=== PATIENT | female | born 1940 | race Caucasian/White ===

== ENCOUNTER → 2016-04-20 | Outpatient (CLI) | payer MEDICARE, BC ==
[~2016-04-20] MED LIST: DYAZ37.52 PO; GLUC2.5T2 PO; LEVO.125 PO; LOTE10TA PO; ROSU10 PO; ZOLO20CO PO
[2016-04-20 16:55] LABS: HEMATOCRIT 41.6 % (35.0-46.0); MEAN CELL VOLUME 92.7 FL (80.0-100.0); MEAN CORPUSCULAR HEMOGLOBIN 31.2 PG (27.0-34.0); MEAN CORPUSCULAR HGB CONC 33.7 % (32.0-36.0); PLATELET COUNT 190 TH/MM3 (150-450); RED BLOOD COUNT 4.49 MIL/MM3 (4.00-5.30); RED CELL DISTRIBUTION WIDTH 13.7 % (11.6-17.2); REVIEW FLAG FINAL; WHITE BLOOD COUNT 6.2 TH/MM3 (4.0-11.0)
[2016-04-20 17:10] LABS: MICRO ALBUMIN RANDOM URINE RAW 28.9 MG/L (0.0-30.0)
[2016-04-20 17:18] LABS: ALT (GPT) 18 U/L (10-53); ANION GAP 10 MEQ/L (5-15); AST (GOT) 14 U/L (15-37); BICARBONATE 31.6 MEQ/L (21.0-32.0); BLOOD UREA NITROGEN 23 MG/DL (7-18); CHLORIDE 103 MEQ/L (98-107); GLOMERULAR FILTRATION RATE 41 ML/MIN (>89); GLUCOSE,FASTING 127 MG/DL (74-99); POTASSIUM 4.2 MEQ/L (3.5-5.1); SODIUM (NA) 145 MEQ/L (136-145)
[2016-04-20 17:21] LABS: ALKALINE PHOSPHATASE 54 U/L (45-117); HDL CHOLESTEROL 59.8 MG/DL (40.0-60.0); LDL CHOLESTEROL 76 MG/DL (0-99); LDL CHOLESTEROL DIRECT 87 MG/DL (0-99); TOTAL BILIRUBIN ADULT 0.5 MG/DL (0.2-1.0)
[2016-04-20 17:22] LABS: CREATINE KINASE 75 U/L (26-192)
[2016-04-20 17:29] LABS: FREE T4 1.2 NG/DL (0.76-1.46)
[2016-04-20 22:26] LABS: HEMOGLOBIN A1b 0.9 %; HEMOGLOBIN Ao 80.1 %; HEMOGLOBIN F 1.4 %; HEMOGLOBIN LA1C 2.1 %; HEMOGLOBIN P3 4.5 %
== END ==
LOC: PLAB 10:48
DX: E11.65 Type 2 diabetes mellitus with hyperglycemia (principal); I10 Essential (primary) hypertension; E78.5 Hyperlipidemia, unspecified; E89.0 Postprocedural hypothyroidism
CPT/HCPCS: 36415; 80053; 80061; 82043; 82550; 83036; 83721; 84439; 84443; 85027

== ENCOUNTER → 2016-08-11 | Outpatient (CLI) | payer MEDICARE, BC ==
[2016-08-11 13:15] LABS: CREATININE RANDOM URINE 13 MG/DL (27-300)
[2016-08-11 13:24] LABS: ALT (GPT) 21 U/L (10-53); ANION GAP 8 MEQ/L (5-15); AST (GOT) 21 U/L (15-37); BLOOD UREA NITROGEN 27 MG/DL (7-18); CHLORIDE 105 MEQ/L (98-107); GLOMERULAR FILTRATION RATE 38 ML/MIN (>89); GLUCOSE,FASTING 127 MG/DL (74-99); POTASSIUM 4.1 MEQ/L (3.5-5.1); SODIUM (NA) 142 MEQ/L (136-145)
[2016-08-11 13:24] LABS: MICRO ALBUMIN RANDOM URINE RAW LESS THAN 5.0 MG/L (0.0-30.0); MICROALBUMIN/CREAT RATIO RAND 38 MG/G CRE (0-30)
[2016-08-11 13:27] LABS: ALKALINE PHOSPHATASE 54 U/L (45-117); HDL CHOLESTEROL 55.4 MG/DL (40.0-60.0); HEMATOCRIT 41.7 % (35.0-46.0); LDL CHOLESTEROL 78 MG/DL (0-99); LDL CHOLESTEROL DIRECT 75 MG/DL (0-99); MEAN CELL VOLUME 94.6 FL (80.0-100.0); MEAN CORPUSCULAR HEMOGLOBIN 31.5 PG (27.0-34.0); MEAN CORPUSCULAR HGB CONC 33.3 % (32.0-36.0); PLATELET COUNT 198 TH/MM3 (150-450); RED BLOOD COUNT 4.41 MIL/MM3 (4.00-5.30); RED CELL DISTRIBUTION WIDTH 13.8 % (11.6-17.2); REVIEW FLAG FINAL; TOTAL BILIRUBIN ADULT 0.4 MG/DL (0.2-1.0); WHITE BLOOD COUNT 6.7 TH/MM3 (4.0-11.0)
[2016-08-11 13:52] LABS: FREE T4 1.19 NG/DL (0.76-1.46)
[2016-08-11 16:17] LABS: HEMOGLOBIN A1a 1.1 %; HEMOGLOBIN A1b 0.9 %; HEMOGLOBIN Ao 81.6 %; HEMOGLOBIN F 1.2 %; HEMOGLOBIN P3 4.3 %
[2016-08-13 19:53] LABS: THYROGLOBULN LESS THAN 0.1 ng/mL (())
== END ==
LOC: PLAB 10:43
DX: E11.65 Type 2 diabetes mellitus with hyperglycemia (principal); I10 Essential (primary) hypertension; E78.5 Hyperlipidemia, unspecified; E89.0 Postprocedural hypothyroidism; C73 Malignant neoplasm of thyroid gland
CPT/HCPCS: 36415; 80053; 80061; 82043; 83036; 83721; 84432; 84439; 84443; 85027; 86800

== ENCOUNTER → 2016-12-13 | Outpatient (CLI) | payer MEDICARE, BC ==
[2016-12-13 15:00] LABS: ALT (GPT) 21 U/L (10-53); ANION GAP 6 MEQ/L (5-15); AST (GOT) 17 U/L (15-37); BLOOD UREA NITROGEN 21 MG/DL (7-18); CHLORIDE 106 MEQ/L (98-107); GLOMERULAR FILTRATION RATE 42 ML/MIN (>89); GLUCOSE,FASTING 97 MG/DL (74-99); HEMATOCRIT 39.9 % (35.0-46.0); MEAN CELL VOLUME 95.2 FL (80.0-100.0); MEAN CORPUSCULAR HEMOGLOBIN 31.9 PG (27.0-34.0); MEAN CORPUSCULAR HGB CONC 33.5 % (32.0-36.0); PLATELET COUNT 195 TH/MM3 (150-450); RED BLOOD COUNT 4.19 MIL/MM3 (4.00-5.30); RED CELL DISTRIBUTION WIDTH 14.1 % (11.6-17.2); REVIEW FLAG FINAL; SODIUM (NA) 141 MEQ/L (136-145); WHITE BLOOD COUNT 6.3 TH/MM3 (4.0-11.0)
[2016-12-13 15:03] LABS: ALKALINE PHOSPHATASE 51 U/L (45-117); LDL CHOLESTEROL 80 MG/DL (0-99); LDL CHOLESTEROL DIRECT 86 MG/DL (0-99); TOTAL BILIRUBIN ADULT 0.4 MG/DL (0.2-1.0)
[2016-12-13 15:18] LABS: FREE T4 1.2 NG/DL (0.76-1.46)
[2016-12-13 16:26] LABS: HEMOGLOBIN A1a 1.1 %; HEMOGLOBIN A1b 0.8 %; HEMOGLOBIN Ao 82.9 %; HEMOGLOBIN LA1C 1.9 %; HEMOGLOBIN P3 4.2 %
== END ==
LOC: PLAB 10:28
PROVIDERS: ATTEND Internal Medicine
DX: E78.5 Hyperlipidemia, unspecified (principal); E11.65 Type 2 diabetes mellitus with hyperglycemia; I10 Essential (primary) hypertension; E89.0 Postprocedural hypothyroidism
CPT/HCPCS: 36415; 80053; 80061; 82043; 83036; 83721; 84439; 84443; 85027

== ENCOUNTER 2016-12-29 10:52 | Emergency (ER) | payer MEDICARE, BC ==
[~2016-12-29] VITALS: Ht 157.5 cm; Wt 93.3 kg
[2016-12-29 10:59] VITALS: BP 181/74; PULSE 76; RESP 16; TEMP 97.6; O2SAT 96
[2016-12-29] MEDS ORDERED: LEVO88TA2 PO (11:16)
[2016-12-29] MEDS ORDERED: FURO1TAB62 PO (11:16)
[2016-12-29] MEDS ORDERED: ROSU10 PO (11:16)
[2016-12-29] MEDS ORDERED: ZOLO50TA PO (11:16)
[2016-12-29] MEDS ORDERED: LEVEMIR SQ (11:16)
[2016-12-29] MEDS ORDERED: NOVOLOGP2 SQ (11:16)
[2016-12-29] MEDS ORDERED: LOTE40TA PO (11:16)
--- NOTE | 2016-12-29 11:27 | PD ---
HPI Chief Complaint: Musculoskeletal Complaint Time Seen by Provider: 11:20 Travel History International Travel<30 days: No Contact w/Intl Traveler<30days: No Traveled to known affect area: No History of Present Illness HPI 76-year-old female with history of diabetes and hypertension presents for evaluation of right leg pain. She reports that it initially started about one week ago as a mild stiffness in the posterior proximal right calf region. Since then the pain has worsened which prompted evaluation. Pain is worse when walking, no alleviating factors. She does not recall any trauma or increased physical activity. She denies any pain in her right thigh, lower back, right knee, right ankle or foot. Denies recent travel, recent surgery. No history of DVT. No other complaints. PFSH Past Medical History Blood Disorders: No Depression: Yes Cardiovascular Problems: Yes (htn on meds) High Cholesterol: Yes Diabetes: Yes (type 2) Patient Takes Glucophage: No Hypertension: Yes Thyroid Disease: Yes ?: Not Past Surgical History Eye Surgery: Yes (LEFT EYE CATARACT) Other Surgery: Yes (THYROID REMOVED) Social History Alcohol Use: No Tobacco Use: No Substance Use: No Allergies-Medications (Allergen,Severity, Reaction): Coded Allergies: No Known Allergies (Verified Allergy, Unknown, 12/29/16) Reported Meds & Prescriptions Reported Meds & Active Scripts Active Reported Levothyroxine (Levothyroxine Sodium) 88 Mcg Tab 88 Mcg PO DAILY Crestor (Rosuvastatin Calcium) 10 Mg Tab 50 Mg PO EVERY OTHER DAY Zoloft (Sertraline HCl) 50 Mg Tab 50 Mg PO DAILY Lasix (Furosemide) 20 Mg Tab 10 Mg PO DAILY Lotensin (Benazepril HCl) 40 Mg Tab 80 Mg PO EVERY OTHER DAY Lotensin (Benazepril HCl) 40 Mg Tab 40 Mg PO EVERY OTHER DAY Novolog Inj (Insulin Aspart) 1,000 Unit/10 Ml Vial 12 Units SQ BID [Levemir] 24 Units SQ HS Review of Systems General / Constitutional: No: Fever, Chills Cardiovascular: No: Chest Pain or Discomfort Respiratory: No: Shortness of Breath Musculoskeletal: Positive: Pain Skin: Positive Other (denies open wounds) Physical Exam Narrative GENERAL: Well-developed well-nourished female in no acute distress SKIN: Warm and dry. No erythema, no bruising or soft tissue swelling HEAD: Atraumatic. Normocephalic. EYES: Pupils equal and round. No scleral icterus. No injection or drainage. ENT: No nasal bleeding or discharge. Mucous membranes pink and moist. NECK: Trachea midline. No JVD. CARDIOVASCULAR: Regular rate and rhythm. No murmur appreciated. RESPIRATORY: No accessory muscle use. Clear to auscultation. Breath sounds equal bilaterally. MUSCULOSKELETAL: No obvious deformities. There is no lower extremity edema. There is focal tenderness to palpation of the posterior proximal right calf. The patient maintains 505 muscle strength on right ankle dorsi and plantar flexion. She has full range of motion of the right knee with no discomfort in the knee joint. NEUROLOGICAL: Awake and alert. No obvious cranial nerve deficits. Motor grossly within normal limits. Normal speech. Data Data Last Documented VS Vital Signs Date Time Temp Pulse Resp B/P (MAP) Pulse Ox O2 Delivery O2 Flow Rate FiO2 12/29/16 10:59 97.6 76 16 181/74 (109) 96 Orders Orders Us Leg Venous Doppler (12/29/16 11:24) Acetaminophen (Tylenol) (12/29/16 11:30) MDM Medical Decision Making Medical Screen Exam Complete: Yes Emergency Medical Condition: Yes Medical Record Reviewed: Yes Differential Diagnosis Ramos cyst, DVT, muscle strain Narrative Course Ultrasound of the right leg was performed revealing CONCLUSION: 1. No evidence of DVT. 2. Fluid collection in the popliteal fossa characteristic of a Ramos's cyst. The area of the Ramos cyst is consistent with the patient's area of pain. Reassurance was offered. She will be discharged with a short course of naproxen. Diagnosis Primary Impression: Ramos cyst Qualified Codes: M71.21 - Synovial cyst of popliteal space [Ramos], right knee Additional Instructions: Naproxen as prescribed. Follow-up with primary care physician. Return for any emergent medical conditions. Med/Other Pt SpecificInfo: Prescription(s) given Scripts Naproxen (Naproxen) 500 Mg Tab 500 MG PO BID for 7 Days, #14 TAB 0 Refills Prov: Eze Buitrago MD 12/29/16 Disposition: 01 DISCHARGE HOME Condition: Stable Luis Alberto Montelongo Dec 29, 2016 11:27
[2016-12-29] MEDS ORDERED: ACETAMINOPHEN 325 MG TAB PO ONE (11:30)
--- NOTE | 2016-12-29 12:01 | RADRPT ---
EXAM DATE/TIME: 12/29/2016 11:41 [facility] COMPARISON: No previous studies available for comparison. INDICATIONS : Right leg pain. MEDICAL HISTORY : Hypertension. Hypercholesterolemia. Diabetes mellitus type 2. Thyroid disease. Depression. SURGICAL HISTORY : Thyroidectomy. Left cataract surgery. ENCOUNTER: Initial ACUITY: 1 week PAIN SCORE: 8/10 LOCATION: Right leg. TECHNIQUE: Venous ultrasound of the leg was performed from the inguinal ligament to the proximal calf. Real-sendy e, color Doppler and spectral tracing, compression and augmentation techniques were used. FINDINGS: There is normal compressibility of the deep venous system from the inguinal region to the proximal ca lf. No echogenic clot is seen in the lumen of the common femoral, femoral, popliteal, and posterior tibial veins. There is a normal response of the venous system to proximal and distal augmentation an d respiration. A fluid collection is identified in the popliteal fossa measuring 5.4 x 1.8 x 3.1 cm. CONCLUSION: 1. No evidence of DVT. 2. Fluid collection in the popliteal fossa characteristic of a Ramos's cyst. Kalia Coon MD on December 29, 2016 at 11:58 Board Certified Radiologist. This report was verified electronically.
[2016-12-29] MEDS ORDERED: NAPR500T2 PO (12:33)
== END 2016-12-29 12:53 | disposition home or self-care (01) ==
LOC: PHEFT 10:52
DX: M71.21 Synovial cyst of popliteal space [Baker], right knee (principal); E78.00 Pure hypercholesterolemia, unspecified; I10 Essential (primary) hypertension; E07.9 Disorder of thyroid, unspecified; E11.9 Type 2 diabetes mellitus without complications; Z79.4 Long term (current) use of insulin
CPT/HCPCS: 93971; 99285

== ENCOUNTER → 2017-01-10 | Day surgery (SDC) | payer MEDICARE, BC ==
[~2017-01-10] MED LIST changes: -DYAZ37.52 PO; +FURO1TAB62 PO; -GLUC2.5T2 PO; +LEVEMIR SQ; -LEVO.125 PO; +LEVO88TA2 PO; +LIDOCAINE HCL 1% 20 ML VIAL ONE; -LOTE10TA PO; +LOTE40TA PO; +NAPR500T2 PO; +NOVOLOGP2 SQ; -ZOLO20CO PO; +ZOLO50TA PO
[2017-01-10 13:09] VITALS: BP 190/86; PULSE 71; RESP 16; TEMP 98.6; O2SAT 93
--- NOTE | 2017-01-10 14:20 | RADRPT ---
EXAM DATE/TIME: 01/10/2017 13:12 [facility] COMPARISON: US LEG RIGHT VENOUS DOPPLER, December 29, 2016, 11:41. INDICATIONS : Ramos's cyst, right knee. MEDICAL HISTORY : Hypertension. Hypercholesterolemia. Diabetes mellitus type 2. Thyroid disease. Depression. SURGICAL HISTORY : Thyroidectomy. Left cataract surgery. ENCOUNTER: Initial ACUITY: 2 weeks PAIN SCORE: 6/10 LOCATION: Right leg. FLUID: Total volume of 5 cc of clear, red fluid was removed. Fluid was discarded. Post procedure scanning reveals no hematoma or other complication. TECHNIQUE: 1. Ultrasound guidance for needle aspiration. 2. Aspiration. The risks, benefits and alternatives to the procedure were explained and verbal and written consent w as obtained. The site was prepped in sterile fashion. Full sterile technique was used, including ca p, mask, sterile gloves and gown and a large sterile sheet. Hand hygiene and 2% chlorhexidine and/or betadine/alcohol prep was utilized per protocol for cutaneous antisepsis. The skin and subcutaneous tissues were infiltrated with local anesthetic solution. Sterile gel and sterile probe cover were u tilized for ultrasound guidance. Ultrasound examination of the right popliteal fossa demonstrates a 5 point 2 x 2 0.1 x 3.0 cm collect ion corresponding to the previously noted Ramos's cyst. However, the collection is now very heterogen eous and complex. Skin overlying the collection was prepped and draped in usual sterile fashion. Mult iple aspiration attempts under direct ultrasound guidance yielded approximately 5 cc of serosanguineo us fluid. Given the significant complexity of the collection, and no additional aspiration tests were performed. CONCLUSION: 1. Previously noted 5 cm right posterior popliteal collection, presumably Ramos's cyst, is now very h eterogeneous and complex likely reflecting interval hemorrhage. 2. Multiple aspiration attempts utilizing 6 K[place]ili pigtail catheter yielded only 5 cc of serosanguine ous fluid. Simple aspiration is not feasible given the significant complexity of the collection at th is time. Jacob Recinos MD on January 10, 2017 at 14:10 Board Certified Radiologist. This report was verified electronically.
== END | disposition home or self-care (01) ==
LOC: HRAD 12:33
PROVIDERS: ATTEND Surgery
DX: M71.21 Synovial cyst of popliteal space [Baker], right knee (principal); I10 Essential (primary) hypertension; E11.9 Type 2 diabetes mellitus without complications
CPT/HCPCS: 10160; 76942; C1729

== ENCOUNTER → 2017-05-03 | Outpatient (CLI) | payer MEDICARE, BC ==
[~2017-05-03] MED LIST changes: -LIDOCAINE HCL 1% 20 ML VIAL ONE
[2017-05-03 13:58] LABS: HEMATOCRIT 39.8 % (35.0-46.0); HEMOGLOBIN 13.2 GM/DL (11.6-15.3); MEAN CORPUSCULAR HEMOGLOBIN 31.6 PG (27.0-34.0); MEAN CORPUSCULAR HGB CONC 33.3 % (32.0-36.0); MEAN PLATELET VOLUME 9.5 FL (7.0-11.0); PLATELET COUNT 229 TH/MM3 (150-450); RED BLOOD COUNT 4.19 MIL/MM3 (4.00-5.30); WHITE BLOOD COUNT 9.2 TH/MM3 (4.0-11.0)
[2017-05-03 15:15] LABS: ALBUMIN 3.7 GM/DL (3.4-5.0); ALKALINE PHOSPHATASE 50 U/L (45-117); ALT (GPT) 17 U/L (10-53); AST (GOT) 11 U/L (15-37); BICARBONATE 26.7 MEQ/L (21.0-32.0); BLOOD UREA NITROGEN 32 MG/DL (7-18); CALCIUM 7.4 MG/DL (8.5-10.1); CALCIUM-PROTEIN CORRECTED 7.6 MG/DL (8.5-10.1); CHLORIDE 104 MEQ/L (98-107); CHOLESTEROL 148 MG/DL (120-200); CHOLESTEROL/ HDL RATIO 2.29 RATIO; GLOMERULAR FILTRATION RATE 44 ML/MIN (>89); GLUCOSE,FASTING 132 MG/DL (74-99); HDL CHOLESTEROL 64.6 MG/DL (40.0-60.0); LDL CHOLESTEROL 75 MG/DL (0-99); LDL CHOLESTEROL DIRECT 89 MG/DL (0-99); SODIUM (NA) 141 MEQ/L (136-145); TOTAL BILIRUBIN ADULT 0.3 MG/DL (0.2-1.0); TOTAL PROTEIN 6.8 GM/DL (6.4-8.2); TRIGLYCERIDES 43 MG/DL (42-150)
[2017-05-03 16:45] LABS: HEMOGLOBIN A1C 7.2 % (4.3-6.0)
== END ==
LOC: PLAB 10:53
PROVIDERS: ATTEND Internal Medicine
DX: E11.65 Type 2 diabetes mellitus with hyperglycemia (principal); I10 Essential (primary) hypertension
CPT/HCPCS: 36415; 80053; 80061; 82043; 83036; 83721; 85027